=== PATIENT | male | born 1925 | race Asian ===

== ENCOUNTER 2016-11-19 23:33 | Inpatient (IN) | payer MEDICARE, OTHER ==
[~2016-11-19] VITALS: Ht 162.6 cm; Wt 61.2 kg
[2016-11-19] MEDS ORDERED: VITAMINS (23:46)
[2016-11-19 23:55] VITALS: BP 130/67
[2016-11-20] VITALS (8 sets, daily range): BP systolic 100–134; BP diastolic 57–74
[2016-11-20] MEDS ORDERED: Ketorolac 30mg Inj IV ONE (00:30)
[2016-11-20 00:46] LABS: BASOPHILS % (AUTO) 0.4 % (0.0-2.0); LYMPHOCYTES % (AUTO) 8.5 % (20.0-45.0); MEAN CORPUSCULAR HEMOGLOBIN 33.1 PG (27.0-31.0); MEAN CORPUSCULAR HGB CONC 34.9 G/DL (32.0-36.0); MEAN CORPUSCULAR VOLUME 95 FL (80-99); MEAN PLATELET VOLUME 5.5 FL (6.5-10.1); MONOCYTES % (AUTO) 12.3 % (1.0-10.0); NEUTROPHILS % (AUTO) 78.9 % (45.0-75.0); PLATELET COUNT 233 K/UL (150-450); RED BLOOD COUNT 3.76 M/UL (4.70-6.10); RED CELL DISTRIBUTION WIDTH 11.1 % (11.6-14.8); WHITE BLOOD COUNT 14.5 K/UL (4.8-10.8)
[2016-11-20 00:56] LABS: ALANINE AMINOTRANSFERASE 12 U/L (3-41); ANION GAP 15 (5-15); ASPARTATE AMINO TRANSFERASE 29 U/L (5-40); CARBON DIOXIDE 28 mEQ/L (20-30); CHLORIDE 96 mEQ/L (98-107); CREATININE 0.8 mg/dL (0.7-1.2); HEMOLYSIS 5; POTASSIUM 4.1 mEQ/L (3.4-4.9); SODIUM 139 mEQ/L (135-145); TOTAL PROTEIN 6.7 g/dL (6.6-8.7)
[2016-11-20 00:57] LABS: TROPONIN I < 0.30 ng/mL (<=0.30)
[2016-11-20 02:14] LABS: APPEARANCE,URINE CLOUDY; KETONES,URINE 1+ (NEGATIVE); LEUKOCYTE ESTERASE ,URINE 2+ (NEGATIVE); NITRITE,URINE POSITIVE (NEGATIVE); PH,URINE 5 (4.5-8.0); PROTEIN,URINE 3+ (NEGATIVE); UROBILINOGEN,URINE 1 MG/DL (0.0-1.0)
[2016-11-20 03:03] LABS: BACTERIA,URINE MANY /HPF; RBC,URINE TNTC /HPF (0 - 0); SQUAMOUS EPITHELIAL CELL,UR FEW /LPF (NONE/OCC); WBC,URINE 15-20 /HPF (0 - 0)
[2016-11-20] MEDS ORDERED: cefTRIAXone 1 GM in NS 55 ML IVPB ONE (03:15)
--- NOTE | 2016-11-20 03:59 | Emergency Room Report ---
History of Present Illness General Chief Complaint: Pain Source: Patient Present Illness HPI Patient is a 89-year-old male who presented after having increased difficulty with walking as well as increased difficulty with the urination. The patient noticed had increased pain over the past one day. The patient was noted to have increased difficulty with urination and stool. Patient reports having prior pain for approximately one month. This is somewhat worsened. Allergies: Coded Allergies: No Known Allergies (Verified Allergy, Unknown, 04/30/10) Patient History Past Medical History: see triage record Reviewed Nursing Documentation: PMH: Agreed, PSxH: Agreed Nursing Documentation-PMH Past Medical History: No Stated History Review of Systems All Other Systems: negative except mentioned in HPI Physical Exam Vital Signs Date Time Temp Pulse Resp B/P Pulse Ox O2 Delivery O2 Flow Rate FiO2 11/19/16 23:39 97.9 85 16 130/67 96 Room Air Sp02 EP Interpretation: reviewed, normal General Appearance: normal inspection, alert, GCS 15, moderate distress Head: atraumatic ENT: normal ENT inspection, hearing grossly normal, normal voice Neck: normal inspection, full range of motion, supple, no bony tend Respiratory: normal inspection, lungs clear, normal breath sounds, no respiratory distress, no retraction, no wheezing Cardiovascular #1: regular rate, rhythm, no edema Gastrointestinal: normal inspection, normal bowel sounds, non tender, soft, no guarding, no hernia Genitourinary: no CVA tenderness Musculoskeletal: normal inspection, back normal, normal range of motion Neurologic: normal inspection, alert, oriented x3, responsive, 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 Differential diagnosis included but was not limited to fracture, contusion, renal stone, vascular insufficiency, aortic aneurysm, cellulitis.Because of complexity of patient's case laboratory testing and imaging studies were ordered. The CT imaging of the abdomen pelvis read by radiology showed compression fracture of T12 which was indeterminate age. CT additionally showed the enlarged calcified prostate. Laboratory testing was notable for evidence of high white blood count as well as urinary tract infection. Patient was given IV antibiotics. Dr. Morales was contacted for inpatient management Laboratory Tests Test 11/20/16 00:35 11/20/16 01:30 White Blood Count 14.5 K/UL (4.8-10.8) H Red Blood Count 3.76 M/UL (4.70-6.10) L Hemoglobin 12.4 G/DL (14.2-18.0) L Hematocrit 35.6 % (42.0-52.0) L Mean Corpuscular Volume 95 FL (80-99) Mean Corpuscular Hemoglobin 33.1 PG (27.0-31.0) H Mean Corpuscular Hemoglobin Concent 34.9 G/DL (32.0-36.0) Red Cell Distribution Width 11.1 % (11.6-14.8) L Platelet Count 233 K/UL (150-450) Mean Platelet Volume 5.5 FL (6.5-10.1) L Neutrophils (%) (Auto) 78.9 % (45.0-75.0) H Lymphocytes (%) (Auto) 8.5 % (20.0-45.0) L Monocytes (%) (Auto) 12.3 % (1.0-10.0) H Eosinophils (%) (Auto) 0.0 % (0.0-3.0) Basophils (%) (Auto) 0.4 % (0.0-2.0) Sodium Level 139 mEQ/L (135-145) Potassium Level 4.1 mEQ/L (3.4-4.9) Chloride Level 96 mEQ/L (98-107) L Carbon Dioxide Level 28 mEQ/L (20-30) Anion Gap 15 (5-15) Blood Urea Nitrogen 20 mg/dL (7-23) Creatinine 0.8 mg/dL (0.7-1.2) Estimate Glomerular Filtration Rate mL/min (>60) Glucose Level 125 mg/dL (74-106) H Calcium Level 9.0 mg/dL (8.6-10.2) Total Bilirubin 0.7 mg/dL (0.0-1.2) Aspartate Amino Transferase (AST) 29 U/L (5-40) Alanine Aminotransferase (ALT) 12 U/L (3-41) Alkaline Phosphatase 60 U/L (40-129) Troponin I < 0.30 ng/mL (<=0.30) Total Protein 6.7 g/dL (6.6-8.7) Albumin 3.5 g/dL (3.5-5.2) Globulin 3.2 g/dL Albumin/Globulin Ratio 1.0 (1.0-2.7) Urine Color Brown Urine Appearance Cloudy Urine pH 5 (4.5-8.0) Urine Specific [place] 1.020 (1.005-1.035) Urine Protein 3+ (NEGATIVE) H Urine Glucose (UA) Negative (NEGATIVE) Urine Ketones 1+ (NEGATIVE) H Urine Occult Blood 5+ (NEGATIVE) H Urine Nitrite Positive (NEGATIVE) H Urine Bilirubin Negative (NEGATIVE) Urine Urobilinogen 1 MG/DL (0.0-1.0) H Urine Leukocyte Esterase 2+ (NEGATIVE) H Urine RBC Tntc /HPF (0 - 0) H Urine WBC 15-20 /HPF (0 - 0) H Urine Squamous Epithelial Cells Few /LPF (NONE/OCC) Urine Bacteria Many /HPF (NONE) H EKG Diagnostic Results Rate: normal Rhythm: NSR ST Segments: no acute changes Chest X-Ray Diagnostic Results EP Interpretation: Yes Findings: no effusion, no pneumothorax, other - post surgical changes. Number of Views: 1 Last Vital Signs Date Time Temp Pulse Resp B/P Pulse Ox O2 Delivery O2 Flow Rate FiO2 11/20/16 02:00 81 17 131/60 97 Room Air 11/20/16 00:51 97.9 Status: unchanged Disposition: ADMITTED INPATIENT Condition: Serious Referrals: NON PHYSICIAN (PCP) Alex Velasco Nov 20, 2016 03:59
[2016-11-20] MEDS: Tamsulosin 0.4mg cap ORAL SCH ×2 (08:34→18:15)
[2016-11-20] MEDS: Heparin 5000 units/ml inj SUBQ SCH ×3 (08:35→21:09)
--- NOTE | 2016-11-20 08:50 | Diagnostic Imaging Report ---
Indications: Fall, cephalgia Technique: Continuous helical CT imaging of the brain was performed with nonionic exposure control on a Siemens sensation [address] scanner. Axial and coronal images were reconstructed at 5 mm slice thickness and interval. CTDI volume(s): 70 mGy Total DLP: 1460 mGy-cm Findings: Comparison: None Confluent low attenuation is present in the bilateral periventricular white matter. Ventricles, cisterns, and sulci are diffusely prominent. No evidence of mass or hemorrhage, mass effect, midline shift, hydrocephalus, or increased intracranial pressure. Bone window images are unremarkable. Mild mucoperiosteal thickening scattered throughout the paranasal sinuses. Bilateral mastoid air cells are clear. IMPRESSION: No evidence of acute injury or other acute intracranial pathology Chronic microvascular ischemic changes bilateral cervical periventricular white matter. Atrophy with ventriculomegaly. An element of normal pressure hydrocephalus must be considered Mild sinusitis. This correlates with preliminary report generated overnight by [facility]. The CT scanner at [facility] is accredited by the [employer] and the scans are performed using protocols designed to limit radiation exposure to as low as reasonably achievable to attain images of sufficient resolution adequate for diagnostic evaluation.
--- NOTE | 2016-11-20 08:52 | Diagnostic Imaging Report ---
Indications: Chest pain Technique: Portable AP chest Findings: Comparison: 04/30/2010 Focal alveolar opacity has developed in the left parahilar region. Linear densities persist in the lateral aspect of the right upper lung. Heart size, pulmonary vasculature remain within normal limits. No pleural abnormality demonstrated. Aortic arch calcification, sternal wires, cardiomediastinal surgical clips all again noted. IMPRESSION: Development of left parahilar opacity compatible with but not specific for pneumonia Stable chronic changes as described
--- NOTE | 2016-11-20 08:56 | Diagnostic Imaging Report ---
Indications: Right knee pain Technique: 3 views right knee. Findings: Comparison: None No fracture, dislocation, joint space widening or effusion, lytic destruction, periosteal reaction , surrounding soft tissue swelling/foreign body/gas, or other acute changes are identified. Curvilinear calcifications are present in both knee joint compartments. Arterial mural calcifications are present in the distal thigh and popliteal fossa. No other chronic changes are demonstrated. IMPRESSION: No evidence of acute abnormality Chondrocalcinosis. Diagnostic possibilities include gout, pseudogout, hyperparathyroidism, and other less common deposition diseases. Arteriosclerosis.
--- NOTE | 2016-11-20 08:58 | Diagnostic Imaging Report ---
Indications: Left knee pain Technique: 3 views left knee. Findings: Comparison: None No fracture, dislocation, joint space widening or effusion, lytic destruction, periosteal reaction , surrounding soft tissue swelling/foreign body/gas, or other acute changes are identified. Curvilinear calcifications are present in both knee joint compartments. Arterial mural calcifications are present in the popliteal fossa. No other chronic changes are demonstrated. IMPRESSION: No evidence of acute abnormality Chondrocalcinosis. Diagnostic possibilities include gout, pseudogout, hyperparathyroidism, and other less common deposition diseases. Arteriosclerosis.
--- NOTE | 2016-11-20 08:58 | Diagnostic Imaging Report ---
Indications: Abdominal pain Technique: Continuous helical CT imaging of the abdomen and pelvis was performed with automatic exposure control following administration of nonionic IV contrast only, on a Siemens sensation [address] scanner. Axial, coronal, sagittal images were reconstructed at 5 mm slice thickness. No oral contrast was administered per requesting physician's order, despite no contraindications listed in either submitted clinical data or tech note.. CTDI volume(s): 13 mGy Total DLP: 594 mGy-cm Findings: Comparison: None Lack of oral contrast limits evaluation of gastrointestinal tract, nondilated throughout. Stomach collapsed. Multiple fluid-filled, nondilated small bowel loops, some with air-fluid levels. Appendix not identified. Increased feces throughout colon to rectum.. No obvious mural thickening, adjacent stranding, extraluminal gas or fluid collections identified. Gallbladder contracted, limiting evaluation. No obvious acute abnormality. Prominent arterial mural calcifications and tortuosity. Apparent moderate stenosis of superior mesenteric artery origin to 50% diameter. High-grade stenoses at the origins of the celiac axis, bilateral renal, inferior mesenteric artery is not excludable. Urinary bladder distended with apparent mild mural thickening. Prostate gland is enlarged, heterogeneous, calcified. Remainder of visualized abdominopelvic anatomy unremarkable. Multiple foci of increased interstitial markings in the periphery of both lung bases. Heart enlarged. Sternal wires are present. Prominent calcification in region of aortic valve. Calcification in left hilum. Multilevel disc space narrowing with marginal osteophyte formation, vacuum phenomenon and lumbar, lower thoracic spine. Mild compression fractures. The T12 vertebral body with 10-20% height loss, no significant retropulsion. Narrowing of bilateral hip joints. . IMPRESSION: Fluid-filled nondilated small bowel. Mild enteritis not excludable. This finding not described in [facility] preliminary report, minor discrepancy. Nonvisualization of appendix. No secondary evidence of acute appendicitis. No other evidence of acute abdominopelvic disease, with limitation as described. Subtle but potentially significant abnormalities the gastrointestinal tract may be missed. Repeat CT scan with full oral and IV contrast preparation recommended for more complete evaluation. Limit evaluation of gallbladder due to contraction. Correlate clinically. Severe arteriosclerosis. Multiple high-grade stenoses as described not excludable. Consider CT angiography for further evaluation as clinically indicated. 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 Consider MRI for further evaluation as clinically indicated. This otherwise correlates with [facility] preliminary report.
[2016-11-20] MEDS ORDERED: Acetaminophen 500mg (ES) tab ORAL PRN (14:45)
[2016-11-20] MEDS: Piperacillin/Tazobactam 3.375 GM in D5W 110 ML IVPB SCH (17:07)
[2016-11-20] MEDS: Docusate 100mg cap ORAL SCH (18:15)
--- NOTE | 2016-11-20 20:18 | History and Physical Report ---
DATE OF ADMISSION: 11/20/2016 CHIEF COMPLAINT AND REASON FOR HOSPITALIZATION: The patient admitted with recurrent falls, difficulty walking, and possible urinary tract infection. HISTORY OF PRESENT ILLNESS: The patient apparently had three falls and present with difficulty walking and limping on the right leg. He has bilateral hip pain. The patient has found to have a probable UTI and a thoracic compression fracture on initial study. There is a history of coronary bypass surgery, I think about ten years ago. No recurrent chest pain or shortness of breath. MEDICATIONS: He does not know his medications. He thinks he takes a blood pressure pill. ALLERGIES: None known. HABITS: He smoked many years ago and quit. No alcohol or drugs. 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 He lives alone. SYSTEM REVIEW: HEENT: Vision is mildly impaired . His hearing impairment. ENDOCRINE: No known diabetes or thyroid disease. PULMONARY: No asthma, TB, or chronic cough. CARDIAC: History of bypass surgery. No definite RI. No CHF or arrhythmias. GI: No GI bleeding, ulcers, or abdominal pain. : He has some slow stream urine and nocturia about three times. NEUROLOGIC: No evidence of CVA or seizures. PHYSICAL EXAMINATION: GENERAL: The patient is an alert elderly man seen with [place] nurse at bedside. VITAL SIGNS: His temperature 97.6 degrees, pulse 81, respirations 18, and blood pressure 100/67. HEENT: Sclerae are nonicteric. Ocular motions intact in all directions. He has had appearing oral mucosa slightly dry. NECK: No adenopathy. LUNGS: Clear. HEART: Regular rhythm. No murmur. ABDOMEN: Soft. No organomegaly or masses. : Declined by the patient. RECTAL: Declined by the patient. EXTREMITIES: No edema, cyanosis, or clubbing. NEUROLOGIC: He is alert and responsive. Follows commands. Appears to be oriented. Ocular motions intact in all directions. Mild symmetric. Tongue is midline. He moves all extremities. He has a limp the right foot . PERTINENT LABORATORIES: Imaging showing lumbar and the thoracic compression fractures and fluid-filled nondilated small bowel and severe atherosclerosis and mural thickening of the urinary bladder wall and enlarged calcified possibly pulmonary bibasilar interstitial disease, cardiomegaly with aortic valve calcification vertebral body compression fracture acuity and indeterminate. IMPRESSION: 1. Probable urinary tract infection. 2. History of coronary disease. 3. History of recurrent falls. 4. Osteoarthritis of the hips. 5. Possible lumbar disk. 6. Gait disorder. 7. Incomplete data base. 8. Social issues apparently he lives alone concern of recurrent falls. PLAN: We will get mental health social worker involved. Physical therapy. Start antibiotics for UTI and start medications for BPH and pain management. Oneal Morales M.D. DR: Mik JOB#: [id number] CC:
[2016-11-21] VITALS: BP 109/66
[2016-11-21] MEDS: Piperacillin/Tazobactam 3.375 GM in D5W 110 ML IVPB SCH ×2 (00:20→08:02)
[2016-11-21 04:00] VITALS: BP 110/55
[2016-11-21] MEDS: Tamsulosin 0.4mg cap ORAL SCH (08:03)
[2016-11-21] MEDS: Docusate 100mg cap ORAL SCH (08:03)
[2016-11-21] MEDS: Heparin 5000 units/ml inj SUBQ SCH ×2 (08:03→09:36)
[2016-11-21 08:15] VITALS: BP 94/45
[2016-11-21 12:01] VITALS: BP 120/64
[2016-11-21] MEDS ORDERED: TAMSULOSIN HCL0.4 MG ORAL (14:46)
[2016-11-21] MEDS ORDERED: PROSCAR5 MG ORAL (14:47)
[2016-11-21] MEDS ORDERED: TYLENOL EXTRA500 MG ORAL (14:48)
[2016-11-21] MEDS ORDERED: LIDODERM700 M1 TOPIC (14:48)
--- NOTE | 2016-11-22 03:19 | Discharge Summary ---
DATE OF ADMISSION: 11/20/2016 DATE OF DISCHARGE: 11/21/2016 PERTINENT HISTORY: The patient is admitted with recurrent falls, difficulty walking, and pain in the right hip and sciatica area. He also is found to have a possibly UTI with pyuria and a thoracic compression fracture on imaging. There is a history of coronary bypass surgery about 10 years ago. PERTINENT PHYSICAL FINDINGS: See my dictation. HEENT: Oral mucosa is slightly dry. NECK: No adenopathy. LUNGS: Clear. HEART: Regular rhythm. ABDOMEN: Soft without organomegaly. EXTREMITIES: No edema. NEUROLOGIC: He is alert and responsive. Follows commands. No focal weakness. He had a limp with some mild right leg drag and appears to have some pain in the right sciatic distribution. COURSE IN THE HOSPITAL: The patient was treated with empiric antibiotics for urinary tract infection, but culture was negative. Physical therapy saw the patient and showed him how to use the walker properly. He was given mild analgesics with Tylenol and Lidoderm patch. The patient wished to go home. Social service saw the patient and I asked him to try to get home health and home physical therapy. It is not clear, if the patient would cooperate, as he did not want to be bothered. He was started on medications for BPH and he was discharged home in stable condition. Able to walk short distances with walker without falling. FINAL DIAGNOSES: 1. Recurrent falls. 2. Osteoarthritis of the hips. 3. 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 4. Gait disorder. 5. Pyuria, but negative urine culture. 6. Benign prostatic hypertrophy. 7. History of coronary disease and prior coronary artery bypass. DISCHARGE DISPOSITION: He is discharged home on a regular diet. Proscar 5 mg daily, Flomax 0.4 mg b.i.d., Tylenol 1000 mg t.i.d., and Lidoderm one patch daily. He is encouraged to follow up with his primary care physician. He is from this hospital. Oneal Morales M.D. DR: TRINH JOB#: [id number] CC:
== END 2016-11-21 18:04 | disposition home health service (06) | DRG 552 ==
LOC: EMR 11-20 00:23 → 4E 11-20 03:35 → EDBEDREQ 11-20 04:34 → 4E 11-20 10:59
DX: S22.089A Unspecified fracture of T11-T12 vertebra, initial encounter for closed fracture (principal); N39.0 Urinary tract infection, site not specified; Z95.1 Presence of aortocoronary bypass graft; I25.10 Atherosclerotic heart disease of native coronary artery without angina pectoris; M16.0 Bilateral primary osteoarthritis of hip; Z91.81 History of falling; R26.9 Unspecified abnormalities of gait and mobility; N40.0 Benign prostatic hyperplasia without lower urinary tract symptoms; Z60.2 Problems related to living alone; M11.262 Other chondrocalcinosis, left knee; M11.261 Other chondrocalcinosis, right knee; I51.7 Cardiomegaly; M51.16 Intervertebral disc disorders with radiculopathy, lumbar region; W19.XXXA Unspecified fall, initial encounter; Y92.9 Unspecified place or not applicable; Z87.891 Personal history of nicotine dependence
CPT/HCPCS: 36415; 70450; 71010; 74177; 80053; 81001; 84484; 85025; 87086

== ENCOUNTER 2016-12-28 21:24 | Inpatient (IN) | payer MEDICARE, OTHER ==
[~2016-12-28] VITALS: Ht 167.6 cm; Wt 51.7 kg
[~2016-12-28 21:24] MED LIST: LIDODERM700 M1 TOPIC; PROSCAR5 MG ORAL; TAMSULOSIN HCL0.4 MG ORAL; TYLENOL EXTRA500 MG ORAL; VITAMINS
--- NOTE | 2016-12-28 21:39 | Emergency Room Report ---
History of Present Illness General Chief Complaint: Generalized Weakness Source: Patient, EMS Present Illness HPI Patient is a 89-year-old male brought in by EMS after increased generalized weakness. Patient stated that he had been having increased weakness. Patient prior history of COPD. Patient reports having intermittent chest pain associated with increased productive cough. Patient stated been having yellow sputum. Patient denied any fever. He denied any abdominal pain. Allergies: Coded Allergies: No Known Allergies (Verified , 04/30/10) Patient History Past Medical History: see triage record Reviewed Nursing Documentation: PMH: Agreed, PSxH: Agreed Nursing Documentation-PMH Past Medical History: No History, Except For Hx Hypertension: Yes Hx Cancer: No Hx Gastrointestinal Problems: No Hx Neurological Problems: No Review of Systems All Other Systems: negative except mentioned in HPI Physical Exam Vital Signs Date Time Temp Pulse Resp B/P Pulse Ox O2 Delivery O2 Flow Rate FiO2 12/28/16 21:24 98.8 74 19 171/80 98 Room Air Sp02 EP Interpretation: reviewed, normal General Appearance: normal inspection, well appearing, no apparent distress, alert, GCS 15, non-toxic Head: atraumatic ENT: normal ENT inspection, hearing grossly normal, normal voice Neck: normal inspection, full range of motion, supple, no bony tend Respiratory: normal inspection, lungs clear, normal breath sounds, no respiratory distress, no retraction, no wheezing Cardiovascular #1: regular rate, rhythm, no edema Gastrointestinal: normal inspection, normal bowel sounds, non tender, soft, no guarding, no hernia Genitourinary: no CVA tenderness Musculoskeletal: normal inspection, back normal, normal range of motion Neurologic: normal inspection, alert, oriented x3, 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 Differential diagnosis included was not limited to anemia, urinary tract infection, electrolyte abnormality, hypothyroidism, myocardial infarction , myasthenia gravis, dehydration, among others. Because of complexity of patient's case laboratory testing and imaging studies were ordered.Laboratory testing is notable for only white blood count with a slightly left shift. Chest x-ray one view interpreted by me showed right lower lobe infiltrate. The patient was started on IV antibiotics. Dr. Yuniel Meyers was contacted for Dr. Oneal Morales for inpatient management Labs Test 12/28/16 22:00 12/28/16 22:34 White Blood Count 11.0 K/UL (4.8-10.8) Red Blood Count 3.78 M/UL (4.70-6.10) Hemoglobin 12.7 G/DL (14.2-18.0) Hematocrit 37.8 % (42.0-52.0) Mean Corpuscular Volume 100 FL (80-99) Mean Corpuscular Hemoglobin 33.5 PG (27.0-31.0) Mean Corpuscular Hemoglobin Concent 33.5 G/DL (32.0-36.0) Red Cell Distribution Width 12.4 % (11.6-14.8) Platelet Count 197 K/UL (150-450) Mean Platelet Volume 5.0 FL (6.5-10.1) Neutrophils (%) (Auto) 81.3 % (45.0-75.0) Lymphocytes (%) (Auto) 10.7 % (20.0-45.0) Monocytes (%) (Auto) 7.2 % (1.0-10.0) Eosinophils (%) (Auto) 0.3 % (0.0-3.0) Basophils (%) (Auto) 0.5 % (0.0-2.0) Sodium Level 142 mEQ/L (135-145) Potassium Level 3.5 mEQ/L (3.4-4.9) Chloride Level 100 mEQ/L (98-107) Carbon Dioxide Level 29 mEQ/L (20-30) Anion Gap 13 (5-15) Blood Urea Nitrogen 24 mg/dL (7-23) Creatinine 0.8 mg/dL (0.7-1.2) Estimat Glomerular Filtration Rate mL/min (>60) Glucose Level 93 mg/dL (74-106) Lactic Acid Level 1.30 mmol/L (0.66-2.22) Calcium Level 8.9 mg/dL (8.6-10.2) Total Bilirubin 0.7 mg/dL (0.0-1.2) Aspartate Amino Transf (AST/SGOT) 24 U/L (5-40) Alanine Aminotransferase (ALT/SGPT) 10 U/L (3-41) Alkaline Phosphatase 55 U/L (40-129) Total Creatine Kinase 222 U/L (38-174) Creatine Kinase MB 7.1 ng/mL (< 6.7) Creatine Kinase MB Relative Index 3.1 Troponin I < 0.30 ng/mL (<=0.30) Total Protein 6.7 g/dL (6.6-8.7) Albumin 3.7 g/dL (3.5-5.2) Globulin 3.0 g/dL Albumin/Globulin Ratio 1.2 (1.0-2.7) Urine Color Pale yellow Urine Appearance Clear Urine pH 6 (4.5-8.0) Urine Specific [place] 1.020 (1.005-1.035) Urine Protein 1+ (NEGATIVE) Urine Glucose (UA) Negative (NEGATIVE) Urine Ketones Negative (NEGATIVE) Urine Occult Blood 1+ (NEGATIVE) Urine Nitrite Negative (NEGATIVE) Urine Bilirubin Negative (NEGATIVE) Urine Urobilinogen Normal MG/DL (0.0-1.0) Urine Leukocyte Esterase 1+ (NEGATIVE) Urine RBC 2-4 /HPF (0 - 0) Urine WBC 2-4 /HPF (0 - 0) Urine Squamous Epithelial Cells Occasional /LPF Urine Bacteria Few /HPF (NONE) Urine Mucus Few /LPF (NONE/OCC) Chest X-Ray Diagnostic Results EP Interpretation: Yes Findings: no effusion, no pneumothorax, other - right lung infiltrate Number of Views: 1 Last Vital Signs Date Time Temp Pulse Resp B/P Pulse Ox O2 Delivery O2 Flow Rate FiO2 12/28/16 21:24 98.8 74 19 171/80 98 Room Air Status: unchanged Disposition: ADMITTED INPATIENT Condition: Serious Alex Velasco Dec 28, 2016 21:39
[2016-12-28 22:17] LABS: BASOPHILS % (AUTO) 0.5 % (0.0-2.0); EOSINOPHILS % (AUTO) 0.3 % (0.0-3.0); LYMPHOCYTES % (AUTO) 10.7 % (20.0-45.0); MEAN CORPUSCULAR HEMOGLOBIN 33.5 PG (27.0-31.0); MEAN CORPUSCULAR HGB CONC 33.5 G/DL (32.0-36.0); MEAN CORPUSCULAR VOLUME 100 FL (80-99); MONOCYTES % (AUTO) 7.2 % (1.0-10.0); NEUTROPHILS % (AUTO) 81.3 % (45.0-75.0); PLATELET COUNT 197 K/UL (150-450); RED BLOOD COUNT 3.78 M/UL (4.70-6.10); RED CELL DISTRIBUTION WIDTH 12.4 % (11.6-14.8)
[2016-12-28 22:48] VITALS: BP 148/74
[2016-12-28 22:59] LABS: ALANINE AMINOTRANSFERASE 10 U/L (3-41); ALBUMIN/GLOBULIN RATIO 1.2 (1.0-2.7); ANION GAP 13 (5-15); ASPARTATE AMINO TRANSFERASE 24 U/L (5-40); CALCIUM 8.9 mg/dL (8.6-10.2); CARBON DIOXIDE 29 mEQ/L (20-30); CHLORIDE 100 mEQ/L (98-107); CREATININE 0.8 mg/dL (0.7-1.2); HEMOLYSIS 7; POTASSIUM 3.5 mEQ/L (3.4-4.9); SODIUM 142 mEQ/L (135-145); TOTAL PROTEIN 6.7 g/dL (6.6-8.7)
[2016-12-28] MEDS ORDERED: UNOBMED (23:01)
[2016-12-28 23:07] LABS: TROPONIN I < 0.30 ng/mL (<=0.30)
[2016-12-28 23:09] LABS: CKMB 7.1 ng/mL (< 6.7)
[2016-12-28 23:25] LABS: APPEARANCE,URINE CLEAR; KETONES,URINE NEGATIVE (NEGATIVE); LEUKOCYTE ESTERASE ,URINE 1+ (NEGATIVE); NITRITE,URINE NEGATIVE (NEGATIVE); PH,URINE 6 (4.5-8.0); PROTEIN,URINE 1+ (NEGATIVE); UROBILINOGEN,URINE NORMAL MG/DL (0.0-1.0)
[2016-12-28 23:54] LABS: BACTERIA,URINE FEW /HPF; MUCUS,URINE FEW /LPF (NONE/OCC); SQUAMOUS EPITHELIAL CELL,UR OCCASIONAL /LPF (NONE/OCC)
[2016-12-29] VITALS (7 sets, daily range): BP systolic 108–167; BP diastolic 59–88
[2016-12-29] MEDS ORDERED: Azithromycin 500 MG in D5W 275 ML IVPB ONE (01:00)
[2016-12-29] MEDS ORDERED: cefTRIAXone 1 GM in NS 55 ML IVPB ONE (01:00)
[2016-12-29] MEDS ORDERED: Azithromycin 500 MG in NS 275 ML IV ONE (01:15)
[2016-12-29] MEDS ORDERED: Azithromycin Inj IV ONE (01:30)
[2016-12-29] MEDS ORDERED: D5 1/2NS 1,000 ML IV SCH (02:09)
[2016-12-29] MEDS: Tamsulosin 0.4mg cap ORAL SCH ×3 (08:38→20:50)
[2016-12-29] MEDS: Heparin 5000 units/ml inj SUBQ SCH ×3 (08:39→20:50)
--- NOTE | 2016-12-29 11:12 | Diagnostic Imaging Report ---
Indication: SOB Technique: One view of the chest Comparison: 11/20/2016 Findings: Heart is borderline enlarged. Lungs and pleural spaces are clear. There is central bronchial wall thickening. There is evidence of prior CABG. Previously demonstrated left perihilar opacity is no longer evident Impression: Central bronchial wall thickening, likely COPD or senescent changes No acute process
[2016-12-29] MEDS ORDERED: Azithromycin 500 MG in NS 275 ML IV SCH (18:00)
[2016-12-29] MEDS: cefTRIAXone 1 GM in NS 55 ML IVPB SCH (20:50)
--- NOTE | 2016-12-29 21:17 | History and Physical Report ---
DATE OF ADMISSION: 12/28/2016 CHIEF COMPLAINT AND REASON FOR HOSPITALIZATION: The patient admitted with pneumonia and weakness. HISTORY OF PRESENT ILLNESS: The patient presented to the emergency room with cough and weakness. Per the emergency room physician, he has no infiltrate on chest x-ray. He was hospitalized here on 11/20/2016 with recurrent falls, osteoarthritis, and pyuria with negative urine culture. He also has a history of coronary disease, prior coronary artery bypass surgery, and benign prostatic hypertrophy. He has a history of COPD. PAST SURGICAL HISTORY: Coronary artery bypass surgery and eye surgery. MEDICATIONS: Finasteride and Flomax. ALLERGIES: None known. HABITS: He smoked many years ago and quit. No alcohol or drugs socially. He lives alone. 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 SYSTEM REVIEW: HEENT: He has poor vision and mild hearing impairment. ENDOCRINE: No diabetes or thyroid disease. PULMONARY: History of COPD and worsening cough recently. No definite TB. CARDIAC: History of coronary bypass surgery. No FL, but he is aware of no CHF or arrhythmia. GI: No ulcers or GI bleeding. No chronic abdominal pain. : He has some decreased stream of urine. No dysuria. NEUROLOGIC: No CVA or seizures. MUSCULOSKELETAL: History of T12 compression fracture and degenerative joint disease. He has had problem walking possibly from lumbar disk and osteoarthritis of the hips. PHYSICAL EXAMINATION: GENERAL: The patient is alert, elderly man, chronically ill-appearing, but not in severe distress. VITAL SIGNS: Temperature 97.5 degrees, pulse 67, respirations 15, and blood pressure 108/60. HEENT: Sclerae are nonicteric. Ocular motions intact in all directions. Hearing is mildly diminished. Throat is clear. NECK: No adenopathy or thyroid enlargement. LUNGS: I hear no rales or rhonchi. There is a dry cough. HEART: Regular rhythm. No murmur. ABDOMEN: Soft. No organomegaly or masses. GENITOURINARY: Penis and testes normal. RECTAL: Deferred. EXTREMITIES: No edema, cyanosis, or clubbing. No swollen joints. NEUROLOGIC: He is alert and responsive. Ocular motions intact in all directions. Smile symmetric. Tongue is midline. He moves all extremities. PERTINENT LABORATORIES: White count of 11,000 and hemoglobin 12.7. Normal electrolytes. CK is 222. Troponin less than 0.30. Urine shows 2 to 4 white cells, 2 to 4 red cells per high-power field, and 1+ protein. IMPRESSION: 1. Pneumonia. 2. Chronic obstructive pulmonary disease. 3. Coronary artery disease. 4. Osteoarthritis. 5. 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 6. Gait disorder. 7. Generalized weakness. PLAN: the patient will be given antibiotics for community-acquired pneumonia. We will watch him closely in view of his comorbidities. He will get reassessed with social service and physical therapy. Oneal Morales M.D. DR: Mik JOB#: [id number] CC:
[2016-12-29] MEDS: DuoNeb 0.5-3(2.5)mg/3ml neb HHN SCH (21:56)
--- NOTE | 2016-12-29 22:28 | Consultation ---
DATE OF CONSULTATION: 12/29/2016 PULMONARY CONSULTATION CONSULTING PHYSICIAN: Yuniel Meyers M.D. ATTENDING PHYSICIAN: Oneal Morales M.D. HISTORY OF PRESENT ILLNESS: The patient is an 89-year-old man, brought into the emergency department by paramedics because of weakness. He has a history of chronic obstructive pulmonary disease. He states that he is coughing and producing some yellow sputum. He has no fever and no shortness of breath. He was evaluated and thought to have possible pneumonia and admission was arranged. I interviewed the patient, who is a poor historian. I have reviewed the x-rays and laboratory studies and examined him. PAST MEDICAL HISTORY: Chronic obstructive pulmonary disease, coronary artery disease, bypass surgery, hypertension, and prostate problems. MEDICATIONS: Not clear what medications he takes at home, possibly a blood pressure pill. ALLERGIES: None. REVIEW OF SYSTEMS: Cannot be obtained. PHYSICAL EXAMINATION: GENERAL: The patient is alert, but seems confused. VITAL SIGNS: Stable. There is no fever. HEENT: The head is normocephalic. NECK: There is no jugular venous distention. CHEST: Clear. CARDIAC: Rhythm is regular. ABDOMEN: Soft and nontender. EXTREMITIES: No edema. LABORATORY STUDIES: Showed a white blood count is slightly elevated at 11,000 with mild left shift, hemoglobin is 12.7, and platelets are normal. Chemistry shows mild increase in BUN and CPK. Urinalysis is essentially negative. Chest x-ray is reviewed and shows an old sternotomy. There are no acute infiltrates. IMPRESSION: 1. Chronic obstructive pulmonary disease exacerbation. 2. Mild anemia. 3. Hypertension. 4. Status post coronary artery bypass surgery. 5. Probable benign prostatic hypertrophy. PLAN: The patient will continue on antibiotics. We will order breathing treatments. There is no indication of pneumonia. Early discharge is anticipated. Yuniel Meyers M.D. DR: PRETTY JOB#: [id number] CC:
[2016-12-30] MEDS: DuoNeb 0.5-3(2.5)mg/3ml neb HHN SCH ×4 (01:00→19:00)
[2016-12-30 04:00] VITALS: BP 130/75
[2016-12-30 08:00] VITALS: BP 114/67
[2016-12-30] MEDS: Tamsulosin 0.4mg cap ORAL SCH ×2 (08:56→21:10)
--- NOTE | 2016-12-30 08:58 | General Progress Note ---
Assessment/Plan Problem List: (1) CAD (coronary artery disease) of artery bypass graft ICD Codes: I25.810 - Atherosclerosis of coronary artery bypass graft(s) without angina pectoris SNOMED: 82748999, 70767355, 766887949, 405571972, 331683727 (2) Osteoarthritis ICD Codes: M19.90 - Unspecified osteoarthritis, unspecified site SNOMED: 568246037 (3) Lumbar disc disease ICD Codes: M51.9 - Unspecified thoracic, thoracolumbar and lumbosacral intervertebral disc disorder SNOMED: 18610724, 680090366 (4) Gait abnormality ICD Codes: R26.9 - Unspecified abnormalities of gait and mobility SNOMED: 05151063 (5) COPD exacerbation ICD Codes: J44.1 - Chronic obstructive pulmonary disease with (acute) exacerbation SNOMED: 782926041, 728000685 (6) Episode of generalized weakness ICD Codes: R53.1 - Weakness SNOMED: 02180566 (7) Bronchitis ICD Codes: J40 - Bronchitis, not specified as acute or chronic SNOMED: 38742065 Assessment/Plan continue antibiotics, PT mobilization and safety eval, social service eval Subjective Constitutional: Reports: weakness HEENT: Reports: no symptoms Cardiovascular: Reports: no symptoms Respiratory: Reports: cough, shortness of breath Gastrointestinal/Abdominal: Reports: no symptoms Genitourinary: Reports: no symptoms Neurologic/Psychiatric: Reports: pre-existing deficit, weakness Endocrine: Reports: no symptoms Hematologic/Lymphatic: Reports: no symptoms Allergies: Coded Allergies: No Known Allergies (Verified , 04/30/10) Subjective difficulty walking Objective Last 24 Hour Vital Signs Date Time Temp Pulse Resp B/P Pulse Ox O2 Delivery O2 Flow Rate FiO2 12/30/16 07:29 Room Air 12/30/16 07:27 Room Air 12/30/16 04:00 98.2 75 19 130/75 97 Room Air 12/30/16 01:55 72 20 Room Air 21 12/30/16 01:30 20 Room Air 12/30/16 01:30 Room Air 12/29/16 20:00 96.7 74 20 167/88 98 Room Air 12/29/16 16:00 97.7 83 20 141/77 96 Room Air 12/29/16 12:00 97.9 20 124/66 97 Room Air Intake and Output 12/29/16 12/30/16 19:00 07:00 Intake Total 420 ml 480 ml Balance 420 ml 480 ml Intake Oral 120 ml 480 ml IV Total 300 ml # Voids 2 4 # Bowel Movements 1 Height (Feet): 5 Height (Inches): 6.00 Weight (Pounds): 114 General Appearance: no apparent distress, alert EENT: normal ENT inspection Neck: normal alignment Cardiovascular: normal rate, regular rhythm Respiratory/Chest: rhonchi - bilaterally Abdomen: non tender, soft Extremities: other - no edema Neurologic: other - unsteady gait FINN RODRIGUEZ Dec 30, 2016 08:57
[2016-12-30] MEDS: Heparin 5000 units/ml inj SUBQ SCH ×2 (09:00→21:00)
[2016-12-30] MEDS: Azithromycin 250mg tab ORAL SCH (09:11)
[2016-12-30 12:00] VITALS: BP 114/67
[2016-12-30 16:00] VITALS: BP 127/69
--- NOTE | 2016-12-30 18:59 | Pulmonology Progress Note ---
Assessment/Plan Assessment/Plan 1. Chronic obstructive pulmonary disease exacerbation. 2. Mild anemia. 3. Hypertension. 4. Status post coronary artery bypass surgery. 5. Probable benign prostatic hypertrophy. NO steroids nebs as rx abx transition to po oob check RA sat dc planning Subjective Constitutional: Reports: no symptoms HEENT: Repors: no symptoms Respiratory: Reports: no symptoms Gastrointestinal/Abdominal: Reports: no symptoms Allergies: Coded Allergies: No Known Allergies (Verified , 04/30/10) Subjective confused no distress requesting IV removed no cp nv or bleeding positive uop Objective Last 24 Hour Vital Signs Date Time Temp Pulse Resp B/P Pulse Ox O2 Delivery O2 Flow Rate FiO2 12/30/16 16:00 98.1 75 18 127/69 99 Room Air 12/30/16 13:39 77 20 100 Room Air 12/30/16 13:30 83 18 95 Room Air 12/30/16 12:00 97.5 73 18 114/67 96 Room Air 12/30/16 08:00 97.9 84 18 114/67 98 Room Air 12/30/16 07:29 Room Air 12/30/16 07:27 Room Air 12/30/16 04:00 98.2 75 19 130/75 97 Room Air 12/30/16 01:55 72 20 Room Air 21 12/30/16 01:30 20 Room Air 12/30/16 01:30 Room Air 12/29/16 20:00 96.7 74 20 167/88 98 Room Air Intake and Output 12/29/16 12/30/16 19:00 07:00 Intake Total 420 ml 480 ml Balance 420 ml 480 ml Intake Oral 120 ml 480 ml IV Total 300 ml # Voids 2 4 # Bowel Movements 1 General Appearance: cachetic HEENT: atraumatic, anicteric Respiratory/Chest: lungs clear, normal breath sounds Cardiovascular: normal peripheral pulses, regular rhythm Abdomen: no organomegaly, non distended Extremities: no clubbing Skin: no lesions Neurologic/Psychiatric: alert, responsive Microbiology Date/Time Source Procedure Growth Status 12/28/16 22:00 Blood Blood Culture - Preliminary NO GROWTH AFTER 24 HOURS Resulted 12/28/16 19:45 Blood Blood Culture - Preliminary NO GROWTH AFTER 24 HOURS Resulted Current Medications Medications (Trade) Dose Ordered Sig/Yulisa Route PRN Reason Start Time Stop Time Status Last Admin Dose Admin Acetaminophen (Tylenol) 650 mg Q4H PRN ORAL Mild Pain/Temp > 100.5 12/29/16 08:00 01/28/17 07:59 Albuterol/ Ipratropium (DuoNeb 0.5-3(2.5)mg/3ml) 3 ml Q6HRT N 12/29/16 14:30 01/03/17 14:29 12/30/16 13:31 Azithromycin (Zithromax) 250 mg DAILY ORAL 12/30/16 09:00 01/06/17 08:59 12/30/16 09:11 Ceftriaxone Sodium/Sodium Chloride (Rocephin/Sodium Chloride) 55 ml @ 110 mls/hr DAILY@2100 IVPB 12/29/16 21:00 01/05/17 20:59 12/29/16 20:50 Finasteride (Proscar) 5 mg DAILY ORAL 12/29/16 09:00 01/28/17 08:59 12/30/16 08:56 Heparin Sodium (Porcine) (Heparin 5000 units/ml) 5,000 units EVERY 12 HOURS SUBQ 12/29/16 09:00 01/28/17 08:59 12/30/16 09:00 Lidocaine (Lidoderm 5% PATCH) 1 patch PRN PRN TDERMAL BACK PAIN 12/29/16 08:00 01/28/17 07:59 12/30/16 09:11 Tamsulosin HCl (Flomax) 0.4 mg Q12HR ORAL 12/29/16 09:00 01/28/17 08:59 12/30/16 08:56 Current Medications Medications (Trade) Dose Ordered Sig/Yulisa Route PRN Reason Start Time Stop Time Status Last Admin Dose Admin Acetaminophen (Tylenol) 650 mg Q4H PRN ORAL Mild Pain/Temp > 100.5 12/29/16 08:00 01/28/17 07:59 Albuterol/ Ipratropium (DuoNeb 0.5-3(2.5)mg/3ml) 3 ml Q6HRT N 12/29/16 14:30 01/03/17 14:29 12/30/16 13:31 Azithromycin (Zithromax) 250 mg DAILY ORAL 12/30/16 09:00 01/06/17 08:59 12/30/16 09:11 Ceftriaxone Sodium/Sodium Chloride (Rocephin/Sodium Chloride) 55 ml @ 110 mls/hr DAILY@2100 IVPB 12/29/16 21:00 01/05/17 20:59 12/29/16 20:50 Finasteride (Proscar) 5 mg DAILY ORAL 12/29/16 09:00 01/28/17 08:59 12/30/16 08:56 Heparin Sodium (Porcine) (Heparin 5000 units/ml) 5,000 units EVERY 12 HOURS SUBQ 12/29/16 09:00 01/28/17 08:59 12/30/16 09:00 Lidocaine (Lidoderm 5% PATCH) 1 patch PRN PRN TDERMAL BACK PAIN 12/29/16 08:00 01/28/17 07:59 12/30/16 09:11 Tamsulosin HCl (Flomax) 0.4 mg Q12HR ORAL 12/29/16 09:00 01/28/17 08:59 12/30/16 08:56 CHEYENNE VARGAS DO Dec 30, 2016 18:59
[2016-12-30 20:00] VITALS: BP 136/79
[2016-12-30] MEDS: cefTRIAXone 1 GM in NS 55 ML IVPB SCH (21:00)
[2016-12-31] VITALS: BP 122/67
[2016-12-31] MEDS: DuoNeb 0.5-3(2.5)mg/3ml neb HHN SCH ×4 (01:00→19:00)
[2016-12-31 04:00] VITALS: BP 126/71
[2016-12-31 08:10] VITALS: BP 128/72
--- NOTE | 2016-12-31 08:29 | Pulmonology Progress Note ---
Assessment/Plan Assessment/Plan 1. Chronic obstructive pulmonary disease exacerbation. 2. Mild anemia. 3. Hypertension. 4. Status post coronary artery bypass surgery. 5. Probable benign prostatic hypertrophy. NO steroids nebs as rx abx transition to po oob check RA sat dc planning per primary Subjective Constitutional: Reports: no symptoms HEENT: Repors: no symptoms Respiratory: Reports: no symptoms Cardiovascular: Reports: no symptoms Psychiatric: Reports: no symptoms Endocrine: Reports: no symptoms Hematologic: Reports: no symptoms Allergies: Coded Allergies: No Known Allergies (Verified , 04/30/10) Subjective no events noted over night still confused no distress on RA no cp nv or bleeding positive uop Objective Last 24 Hour Vital Signs Date Time Temp Pulse Resp B/P Pulse Ox O2 Delivery O2 Flow Rate FiO2 12/31/16 08:10 96.6 89 17 128/72 100 Room Air 12/31/16 07:39 75 16 100 Room Air 12/31/16 07:31 21 12/31/16 07:30 72 18 95 Room Air 21 12/31/16 04:00 98.1 73 18 126/71 98 Room Air 12/31/16 01:00 Room Air 12/31/16 01:00 Room Air 12/31/16 00:00 97.5 80 18 122/67 98 Room Air 12/30/16 20:00 97.7 83 18 136/79 98 Room Air 12/30/16 19:29 Room Air 12/30/16 19:29 Room Air 12/30/16 16:00 98.1 75 18 127/69 99 Room Air 12/30/16 13:39 77 20 100 Room Air 12/30/16 13:30 83 18 95 Room Air 12/30/16 12:00 97.5 73 18 114/67 96 Room Air Intake and Output 12/30/16 12/31/16 19:00 07:00 Intake Total 1000 ml 480 ml Balance 1000 ml 480 ml Intake Oral 1000 ml 480 ml # Voids 2 2 # Bowel Movements 1 General Appearance: cachetic HEENT: atraumatic, anicteric Respiratory/Chest: lungs clear, normal breath sounds Cardiovascular: normal rate, regular rhythm Abdomen: soft, non tender, no organomegaly Skin: no rash Neurologic/Psychiatric: alert Lymphatic: no groin adenopathy Microbiology Date/Time Source Procedure Growth Status 12/28/16 22:00 Blood Blood Culture - Preliminary NO GROWTH AFTER 48 HOURS Resulted 12/28/16 19:45 Blood Blood Culture - Preliminary NO GROWTH AFTER 48 HOURS Resulted no new labs or cxr today Current Medications Medications (Trade) Dose Ordered Sig/Yulisa Route PRN Reason Start Time Stop Time Status Last Admin Dose Admin Acetaminophen (Tylenol) 650 mg Q4H PRN ORAL Mild Pain/Temp > 100.5 12/29/16 08:00 01/28/17 07:59 Albuterol/ Ipratropium (DuoNeb 0.5-3(2.5)mg/3ml) 3 ml Q6HRT HHN 12/29/16 14:30 01/03/17 14:29 12/31/16 07:28 Azithromycin (Zithromax) 250 mg DAILY ORAL 12/30/16 09:00 01/06/17 08:59 12/30/16 09:11 Ceftriaxone Sodium/Sodium Chloride (Rocephin/Sodium Chloride) 55 ml @ 110 mls/hr DAILY@2100 IVPB 12/29/16 21:00 01/05/17 20:59 12/29/16 20:50 Finasteride (Proscar) 5 mg DAILY ORAL 12/29/16 09:00 01/28/17 08:59 12/30/16 08:56 Heparin Sodium (Porcine) (Heparin 5000 units/ml) 5,000 units EVERY 12 HOURS SUBQ 12/29/16 09:00 01/28/17 08:59 12/30/16 09:00 Lidocaine (Lidoderm 5% PATCH) 1 patch PRN PRN TDERMAL BACK PAIN 12/29/16 08:00 01/28/17 07:59 12/30/16 09:11 Tamsulosin HCl (Flomax) 0.4 mg Q12HR ORAL 12/29/16 09:00 01/28/17 08:59 12/30/16 21:10 CHEYENNE VARGAS DO Dec 31, 2016 08:29
[2016-12-31] MEDS ORDERED: Tubing IV Secondary IV ONE (08:49)
[2016-12-31] MEDS: Heparin 5000 units/ml inj SUBQ SCH ×2 (09:00→20:55)
[2016-12-31] MEDS: Azithromycin 250mg tab ORAL SCH (09:02)
[2016-12-31] MEDS: Tamsulosin 0.4mg cap ORAL SCH ×2 (09:02→20:55)
--- NOTE | 2016-12-31 10:01 | General Progress Note ---
Assessment/Plan Problem List: (1) CAD (coronary artery disease) of artery bypass graft ICD Codes: I25.810 - Atherosclerosis of coronary artery bypass graft(s) without angina pectoris SNOMED: 01436175, 44598580, 399887261, 716526221, 719832701 (2) Osteoarthritis ICD Codes: M19.90 - Unspecified osteoarthritis, unspecified site SNOMED: 397185585 (3) Lumbar disc disease ICD Codes: M51.9 - Unspecified thoracic, thoracolumbar and lumbosacral intervertebral disc disorder SNOMED: 19043415, 280288071 (4) Gait abnormality ICD Codes: R26.9 - Unspecified abnormalities of gait and mobility SNOMED: 51728594 (5) COPD exacerbation ICD Codes: J44.1 - Chronic obstructive pulmonary disease with (acute) exacerbation SNOMED: 606474072, 000755800 (6) Episode of generalized weakness ICD Codes: R53.1 - Weakness SNOMED: 48793941 (7) Bronchitis ICD Codes: J40 - Bronchitis, not specified as acute or chronic SNOMED: 78927508 Assessment/Plan continue antibiotics, PT mobilization and safety eval, social service eval Subjective Constitutional: Reports: weakness HEENT: Reports: blurred vision Cardiovascular: Reports: no symptoms Respiratory: Reports: cough, shortness of breath Gastrointestinal/Abdominal: Reports: no symptoms Genitourinary: Reports: no symptoms Neurologic/Psychiatric: Reports: no symptoms Endocrine: Reports: no symptoms Allergies: Coded Allergies: No Known Allergies (Verified , 04/30/10) Subjective difficulty walking back pain Objective Last 24 Hour Vital Signs Date Time Temp Pulse Resp B/P Pulse Ox O2 Delivery O2 Flow Rate FiO2 12/31/16 08:10 96.6 89 17 128/72 100 Room Air 12/31/16 07:39 75 16 100 Room Air 12/31/16 07:31 21 12/31/16 07:30 72 18 95 Room Air 12/31/16 04:00 98.1 73 18 126/71 98 Room Air 12/31/16 01:00 Room Air 12/31/16 01:00 Room Air 12/31/16 00:00 97.5 80 18 122/67 98 Room Air 12/30/16 20:00 97.7 83 18 136/79 98 Room Air 12/30/16 19:29 Room Air 12/30/16 19:29 Room Air 12/30/16 16:00 98.1 75 18 127/69 99 Room Air 12/30/16 13:39 77 20 100 Room Air 12/30/16 13:30 83 18 95 Room Air 12/30/16 12:00 97.5 73 18 114/67 96 Room Air Intake and Output 12/30/16 12/31/16 19:00 07:00 Intake Total 1000 ml 480 ml Balance 1000 ml 480 ml Intake Oral 1000 ml 480 ml # Voids 2 2 # Bowel Movements 1 Height (Feet): 5 Height (Inches): 6.00 Weight (Pounds): 114 FINN RODRIGUEZ Dec 31, 2016 10:01
[2016-12-31 12:00] VITALS: BP 138/74
[2016-12-31 16:00] VITALS: BP 114/68
[2016-12-31] MEDS: cefTRIAXone 1 GM in NS 55 ML IVPB SCH (20:55)
[2017-01-01] VITALS: BP 110/61
[2017-01-01] MEDS: DuoNeb 0.5-3(2.5)mg/3ml neb HHN SCH ×4 (01:00→19:44)
[2017-01-01 04:00] VITALS: BP 136/77
[2017-01-01 07:52] VITALS: BP 98/62
[2017-01-01] MEDS: Azithromycin 250mg tab ORAL SCH (08:36)
[2017-01-01] MEDS: Heparin 5000 units/ml inj SUBQ SCH ×2 (08:38→20:51)
[2017-01-01] MEDS: Tamsulosin 0.4mg cap ORAL SCH ×3 (08:46→20:50)
[2017-01-01 11:47] VITALS: BP 135/85
--- NOTE | 2017-01-01 13:37 | Pulmonology Progress Note ---
Assessment/Plan Assessment/Plan 1. Chronic obstructive pulmonary disease exacerbation. 2. Mild anemia. 3. Hypertension. 4. Status post coronary artery bypass surgery. 5. Probable benign prostatic hypertrophy. anxious to go home pulm status stable agree w dc planning Subjective Respiratory: Denies: productive cough, shortness of breath Allergies: Coded Allergies: No Known Allergies (Verified , 04/30/10) Objective Last 24 Hour Vital Signs Date Time Temp Pulse Resp B/P Pulse Ox O2 Delivery O2 Flow Rate FiO2 01/01/17 13:15 85 16 100 Room Air 21 01/01/17 13:04 21 01/01/17 13:04 80 20 95 Room Air 21 01/01/17 11:47 97.5 87 20 135/85 92 Room Air 01/01/17 08:01 84 22 98 Room Air 01/01/17 08:01 90 20 100 Room Air 21 01/01/17 08:01 21 01/01/17 07:52 97.9 91 22 98/62 97 Room Air 01/01/17 04:00 96.3 74 18 136/77 Room Air 01/01/17 01:00 Room Air 01/01/17 01:00 Room Air 01/01/17 00:00 97.7 86 18 110/61 97 Room Air 12/31/16 19:19 21 12/31/16 19:19 73 16 99 Room Air 12/31/16 19:19 Room Air 12/31/16 16:00 97.9 84 17 114/68 95 Room Air Intake and Output 12/31/16 01/01/17 19:00 07:00 Intake Total 480 ml 240 ml Balance 480 ml 240 ml Intake Oral 480 ml 240 ml # Voids 2 3 HEENT: atraumatic Respiratory/Chest: lungs clear Cardiovascular: normal rate Current Medications Medications (Trade) Dose Ordered Sig/Yulisa Route PRN Reason Start Time Stop Time Status Last Admin Dose Admin Acetaminophen (Tylenol) 650 mg Q4H PRN ORAL Mild Pain/Temp > 100.5 12/29/16 08:00 01/28/17 07:59 Albuterol/ Ipratropium (DuoNeb 0.5-3(2.5)mg/3ml) 3 ml Q6HRT HHN 12/29/16 14:30 01/03/17 14:29 01/01/17 13:04 Azithromycin (Zithromax) 250 mg DAILY ORAL 12/30/16 09:00 01/06/17 08:59 01/01/17 08:36 Ceftriaxone Sodium/Sodium Chloride (Rocephin/Sodium Chloride) 55 ml @ 110 mls/hr DAILY@2100 IVPB 12/29/16 21:00 01/05/17 20:59 12/29/16 20:50 Finasteride (Proscar) 5 mg DAILY ORAL 12/29/16 09:00 01/28/17 08:59 01/01/17 08:36 Heparin Sodium (Porcine) (Heparin 5000 units/ml) 5,000 units EVERY 12 HOURS SUBQ 12/29/16 09:00 01/28/17 08:59 01/01/17 08:38 Lidocaine (Lidoderm 5% PATCH) 1 patch PRN PRN TDERMAL BACK PAIN 12/29/16 08:00 01/28/17 07:59 12/31/16 10:40 Tamsulosin HCl (Flomax) 0.4 mg Q12HR ORAL 12/29/16 09:00 01/28/17 08:59 12/31/16 09:02 UTE MUNOZ Jan 01, 2017 13:37
[2017-01-01 16:00] VITALS: BP 120/62
[2017-01-01 20:02] VITALS: BP 112/61
[2017-01-02] VITALS: BP 130/68
[2017-01-02] MEDS: DuoNeb 0.5-3(2.5)mg/3ml neb HHN SCH ×4 (01:06→19:25)
--- NOTE | 2017-01-02 02:28 | Discharge Summary ---
DATE OF ADMISSION: 12/28/2016 DATE OF DISCHARGE: 01/03/2017 PERTINENT HISTORY: The patient was admitted with cough and weakness. The emergency room doctor thought he had pneumonia. He has a history of generalized weakness, gait disorder, prior hospitalization, falls, back pain, likely sciatica, osteoarthritis, and COPD. PERTINENT PHYSICAL FINDINGS: GENERAL: The patient is alert. HEAD, EYES, EARS, NOSE, AND THROAT: Hearing is diminished. Throat is clear. LUNGS: No rales or rhonchi. He has dry cough. HEART: Regular rate and rhythm. No murmur. ABDOMEN: Soft without organomegaly. EXTREMITIES: No edema. MUSCULOSKELETAL: He walks with a slight limp with a walker. COURSE IN THE HOSPITAL: The patient had leukocytosis and cough and bronchitis, and started on empiric antibiotics. Chest x-ray showed no definite infiltrate. His cough gradually improved. He required physical therapy as he has unsteady gait. DISCHARGE PHYSICAL EXAMINATION: VITAL SIGNS: On the day of discharge, his vital signs were stable. LUNGS: Clear. HEART: Regular rhythm. ABDOMEN: Soft. EXTREMITIES: No edema. He is able to walk with a walker. He was discharged home in stable condition. FINAL DIAGNOSES: 1. Acute bronchitis. 2. Chronic obstructive pulmonary disease. 3. Gait disorder. 4. Lumbar disk disease. 5. Osteoarthritis. 6. Benign prostatic hyperplasia. 7. cognitive deficits DISCHARGE DISPOSITION: He is discharged to an ecf on a regular diet. DISCHARGE MEDICATIONS: Per the discharge medication list. FOLLOWUP: Follow up by Dr Morales Of note is that the patient was seen by case management and social service prior to admission in view of his recurrent admissions and social issues. Oneal Morales M.D. DR: SACHIN JOB#: [id number] CC: LILIA
[2017-01-02 04:00] VITALS: BP 123/65
[2017-01-02 07:59] VITALS: BP 111/56
[2017-01-02] MEDS: Tamsulosin 0.4mg cap ORAL SCH ×2 (08:36→20:38)
[2017-01-02] MEDS: Azithromycin 250mg tab ORAL SCH (08:36)
[2017-01-02] MEDS: Heparin 5000 units/ml inj SUBQ SCH ×2 (08:38→20:37)
[2017-01-02 12:24] VITALS: BP 114/65
--- NOTE | 2017-01-02 13:26 | Pulmonology Progress Note ---
Assessment/Plan Assessment/Plan 1. Chronic obstructive pulmonary disease exacerbation. 2. Mild anemia. 3. Hypertension. 4. Status post coronary artery bypass surgery. 5. Probable benign prostatic hypertrophy. anote dc plan pulm status stable will sign off Subjective Respiratory: Denies: productive cough, shortness of breath Allergies: Coded Allergies: No Known Allergies (Verified , 04/30/10) Objective Last 24 Hour Vital Signs Date Time Temp Pulse Resp B/P Pulse Ox O2 Delivery O2 Flow Rate FiO2 01/02/17 12:38 70 18 97 Room Air 21 01/02/17 12:38 70 18 97 Room Air 21 01/02/17 12:24 98.2 84 15 114/65 98 Room Air 01/02/17 07:59 97.7 82 16 111/56 98 Room Air 01/02/17 07:27 70 18 97 Room Air 21 01/02/17 07:27 70 18 97 Room Air 21 01/02/17 04:00 98.2 75 20 123/65 95 Room Air 01/02/17 01:09 73 16 99 Room Air 01/02/17 01:08 21 01/02/17 01:07 83 18 97 Room Air 21 01/02/17 00:00 98.1 73 18 130/68 96 Room Air 01/01/17 20:02 98.6 88 21 112/61 98 Room Air 01/01/17 19:45 86 16 100 Room Air 21 01/01/17 19:45 85 18 97 Room Air 21 01/01/17 19:45 21 01/01/17 16:00 97.5 78 21 120/62 97 Room Air Intake and Output 01/01/17 01/02/17 19:00 07:00 Intake Total 960 ml 240 ml Balance 960 ml 240 ml Intake Oral 960 ml 240 ml # Voids 1 3 General Appearance: no acute distress Respiratory/Chest: crackles/rales Cardiovascular: normal rate Current Medications Medications (Trade) Dose Ordered Sig/Yulisa Route PRN Reason Start Time Stop Time Status Last Admin Dose Admin Acetaminophen (Tylenol) 650 mg Q4H PRN ORAL Mild Pain/Temp > 100.5 12/29/16 08:00 01/28/17 07:59 Albuterol/ Ipratropium (DuoNeb 0.5-3(2.5)mg/3ml) 3 ml Q6HRT HHN 12/29/16 14:30 01/03/17 14:29 01/02/17 01:06 Azithromycin (Zithromax) 250 mg DAILY ORAL 12/30/16 09:00 01/06/17 08:59 01/02/17 08:36 Finasteride (Proscar) 5 mg DAILY ORAL 12/29/16 09:00 01/28/17 08:59 01/02/17 08:36 Heparin Sodium (Porcine) (Heparin 5000 units/ml) 5,000 units EVERY 12 HOURS SUBQ 12/29/16 09:00 01/28/17 08:59 01/02/17 08:38 Lidocaine (Lidoderm 5% PATCH) 1 patch PRN PRN TDERMAL BACK PAIN 12/29/16 08:00 01/28/17 07:59 12/31/16 10:40 Tamsulosin HCl (Flomax) 0.4 mg Q12HR ORAL 12/29/16 09:00 01/28/17 08:59 01/02/17 08:36 UTE MUNOZ Jan 02, 2017 13:26
[2017-01-02 16:02] VITALS: BP 112/59
[2017-01-02 20:00] VITALS: BP_SYST 129; BP_SYST 140; BP_DIAS 70; BP_DIAS 72
--- NOTE | 2017-01-02 22:24 | General Progress Note ---
Assessment/Plan Problem List: (1) CAD (coronary artery disease) of artery bypass graft ICD Codes: I25.810 - Atherosclerosis of coronary artery bypass graft(s) without angina pectoris SNOMED: 30550315, 85592077, 511228508, 380765585, 473367267 (2) Osteoarthritis ICD Codes: M19.90 - Unspecified osteoarthritis, unspecified site SNOMED: 717515764 (3) Lumbar disc disease ICD Codes: M51.9 - Unspecified thoracic, thoracolumbar and lumbosacral intervertebral disc disorder SNOMED: 79851470, 006068895 (4) Gait abnormality ICD Codes: R26.9 - Unspecified abnormalities of gait and mobility SNOMED: 47213174 (5) COPD exacerbation ICD Codes: J44.1 - Chronic obstructive pulmonary disease with (acute) exacerbation SNOMED: 111222506, 094792066 (6) Episode of generalized weakness ICD Codes: R53.1 - Weakness SNOMED: 27444716 (7) Bronchitis ICD Codes: J40 - Bronchitis, not specified as acute or chronic SNOMED: 26661796 Assessment/Plan , PT mobilization and safety eval, social service eval, cognitiveve deficit and no safe dc plan yet, plan for ecf Subjective Constitutional: Reports: weakness HEENT: Reports: no symptoms Cardiovascular: Reports: no symptoms Respiratory: Reports: cough, no symptoms Gastrointestinal/Abdominal: Reports: no symptoms Genitourinary: Reports: no symptoms Endocrine: Reports: no symptoms Hematologic/Lymphatic: Reports: no symptoms Allergies: Coded Allergies: No Known Allergies (Verified , 04/30/10) Subjective difficulty walking back pain less sob Objective Last 24 Hour Vital Signs Date Time Temp Pulse Resp B/P Pulse Ox O2 Delivery O2 Flow Rate FiO2 01/02/17 20:00 97.9 83 24 129/70 98 Room Air 01/02/17 19:25 84 18 97 Room Air 01/02/17 19:25 88 18 97 Room Air 01/02/17 19:25 21 01/02/17 16:02 97.7 86 14 112/59 98 Room Air 01/02/17 12:38 70 18 97 Room Air 21 01/02/17 12:38 70 18 97 Room Air 01/02/17 12:24 98.2 84 15 114/65 98 Room Air 01/02/17 07:59 97.7 82 16 111/56 98 Room Air 01/02/17 07:27 70 18 97 Room Air 21 01/02/17 07:27 70 18 97 Room Air 21 01/02/17 04:00 98.2 75 20 123/65 95 Room Air 01/02/17 01:09 73 16 99 Room Air 21 01/02/17 01:08 21 01/02/17 01:07 83 18 97 Room Air 21 01/02/17 00:00 98.1 73 18 130/68 96 Room Air Intake and Output 01/01/17 01/02/17 19:00 07:00 Intake Total 960 ml 240 ml Balance 960 ml 240 ml Intake Oral 960 ml 240 ml # Voids 1 3 Height (Feet): 5 Height (Inches): 6.00 Weight (Pounds): 114 General Appearance: no apparent distress, alert EENT: normal ENT inspection Neck: normal alignment, supple Cardiovascular: normal rate, regular rhythm Respiratory/Chest: lungs clear Extremities: no calf tenderness Edema: no edema noted Arm (L), no edema noted Arm (R), no edema noted Leg (L), no edema noted Leg (R), no edema noted Pedal (L), no edema noted Pedal (R), no edema noted 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
[2017-01-03] MEDS: DuoNeb 0.5-3(2.5)mg/3ml neb HHN SCH ×3 (00:03→12:41)
--- NOTE | 2017-01-03 01:38 | Consultation ---
DATE OF CONSULTATION: HISTORY OF PRESENT ILLNESS: The patient is an 89-year-old male with a history of cognitive impairment, who has been admitted to the hospital for pneumonia and weakness. During the evaluation, the patient was uncooperative. He stated, "do you think I am crazy." It appeared that he had difficulty with his balance and he had to use his walker. He has a sitter. The patient in the middle of the evaluation dialed a number and started speaking Upper Sor[place] and when I spoke to him in regards to his placement and not feeling well he became severely angry and started speaking in Upper Sorbian. The patient was unable to understand, communicate, and appreciate process. Information was given to him in regards to his medical condition for placement. He became severely angry and agitated and asked me to leave the room. PAST PSYCHIATRIC HISTORY: Unknown. PAST MEDICAL HISTORY: Significant for coronary artery bypass and eye surgery. ALLERGIES: No known drug allergies. SUBSTANCE ABUSE HISTORY: No history of illicit drug use or alcohol. He used to be a smoker. SOCIAL HISTORY: The patient is living alone. 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 MENTAL STATUS EXAMINATION: The patient is alert and oriented to time, place, person, and situation. His mood is angry. Affect is constricted. Congruent mood. Thought process is concrete. Thought content, positive for paranoid ideation. Insight and judgment is impaired. ASSESSMENT: AXIS I Dementia. AXIS II Deferred. AXIS III As above. AXIS IV Moderate. AXIS V Global assessment of functioning is 20. PLAN: The patient lacks capacity to make decisions in regards to his placement . The patient would benefit from low dose of antidepressants. We will start him on fluoxetine 20 mg in the morning. Provide the patient with supportive therapy and reality orientation. Ridge Hollis M.D. DR: SUKHJINDER JOB#: [id number] CC:
[2017-01-03 04:00] VITALS: BP 132/62
[2017-01-03 07:32] VITALS: BP 106/65
[2017-01-03] MEDS: Heparin 5000 units/ml inj SUBQ SCH (09:00)
[2017-01-03] MEDS: Azithromycin 250mg tab ORAL SCH (09:39)
[2017-01-03] MEDS: Tamsulosin 0.4mg cap ORAL SCH (09:40)
[2017-01-03 11:26] VITALS: BP 116/63
--- NOTE | 2017-01-03 15:38 | General Progress Note ---
Assessment/Plan Problem List: (1) CAD (coronary artery disease) of artery bypass graft ICD Codes: I25.810 - Atherosclerosis of coronary artery bypass graft(s) without angina pectoris SNOMED: 50857877, 38699834, 359697210, 597062835, 144409575 (2) Osteoarthritis ICD Codes: M19.90 - Unspecified osteoarthritis, unspecified site SNOMED: 762661694 (3) Lumbar disc disease ICD Codes: M51.9 - Unspecified thoracic, thoracolumbar and lumbosacral intervertebral disc disorder SNOMED: 75241901, 792666022 (4) Gait abnormality ICD Codes: R26.9 - Unspecified abnormalities of gait and mobility SNOMED: 53959293 (5) COPD exacerbation ICD Codes: J44.1 - Chronic obstructive pulmonary disease with (acute) exacerbation SNOMED: 514602858, 275313242 (6) Episode of generalized weakness ICD Codes: R53.1 - Weakness SNOMED: 82990422 (7) Bronchitis ICD Codes: J40 - Bronchitis, not specified as acute or chronic SNOMED: 46975266 Assessment/Plan , PT mobilization and safety eval, social service eval, cognitiveve deficit and no safe dc plan yet, plan for ecf for 01/03 Subjective Constitutional: Reports: weakness HEENT: Reports: blurred vision Cardiovascular: Reports: no symptoms Respiratory: Reports: cough Gastrointestinal/Abdominal: Reports: no symptoms Genitourinary: Reports: no symptoms Neurologic/Psychiatric: Reports: no symptoms Endocrine: Reports: no symptoms Allergies: Coded Allergies: No Known Allergies (Verified , 04/30/10) Subjective difficulty walking back pain less sob Objective Last 24 Hour Vital Signs Date Time Temp Pulse Resp B/P Pulse Ox O2 Delivery O2 Flow Rate FiO2 01/03/17 12:41 Room Air 01/03/17 12:41 Room Air 01/03/17 11:26 97.7 73 19 116/63 96 Room Air 01/03/17 07:32 97.9 94 19 106/65 96 Room Air 01/03/17 07:20 Room Air 01/03/17 07:20 Room Air 01/03/17 04:00 97.9 85 20 132/62 98 Room Air 01/03/17 00:03 Room Air 01/03/17 00:03 Room Air 01/02/17 20:00 97.9 83 24 129/70 98 Room Air 01/02/17 19:25 84 18 97 Room Air 21 01/02/17 19:25 88 18 97 Room Air 21 01/02/17 19:25 21 01/02/17 16:02 97.7 86 14 112/59 98 Room Air Intake and Output 01/02/17 01/03/17 19:00 07:00 Intake Total 1250 ml 480 ml Balance 1250 ml 480 ml Intake Oral 1250 ml 480 ml # Voids 2 3 Height (Feet): 5 Height (Inches): 6.00 Weight (Pounds): 114 FINN RODRIGUEZ Jan 03, 2017 15:38
[2017-01-03 15:40] VITALS: BP 133/75
--- NOTE | 2017-01-03 19:58 | Progress Note ---
DATE: 01/03/2017 SUBJECTIVE: The patient is still irritable. His behavior is labile. He has anxiety and easily agitated, although the patient is alert and oriented to time, self, place, and situation he is in; however, he is unable to understand the importance of being in a place and not understanding the inability to care for himself. The patient is having also impairment of concentration, memory, and attention. MENTAL STATUS EXAMINATION: The patient is alert and oriented x3. Mood is irritable and anxious. Affect is constricted, congruent with mood. Thought process is concrete. Thought content, no suicidal or homicidal ideation. Insight and judgment is impaired. Cognition is impaired. ASSESSMENT: The patient lacks capacity to make decisions in regard to his placement. He may not live on his own. PLAN: He should be discharged to a nursing facility. The case was discussed with the social workers. Ridge Hollis M.D. DR: Mariaa JOB#: [id number] CC:
== END 2017-01-03 19:30 | DRG 192 ==
LOC: EDBD 21:24 → EMR 22:00 → 4W 23:13 → EDBEDREQ 12-29 00:56 → 4W 12-29 03:16 → 3E 12-29 09:21 → 4E 12-31 19:56
DX: J44.1 Chronic obstructive pulmonary disease with (acute) exacerbation (principal); F03.90 Unspecified dementia, unspecified severity, without behavioral disturbance, psychotic disturbance, mood disturbance, and anxiety; D64.9 Anemia, unspecified; J20.9 Acute bronchitis, unspecified; J44.0 Chronic obstructive pulmonary disease with (acute) lower respiratory infection; I10 Essential (primary) hypertension; Z95.1 Presence of aortocoronary bypass graft; N40.0 Benign prostatic hyperplasia without lower urinary tract symptoms; R26.9 Unspecified abnormalities of gait and mobility; M51.36 Other intervertebral disc degeneration, lumbar region; M19.90 Unspecified osteoarthritis, unspecified site; Z87.891 Personal history of nicotine dependence; I25.10 Atherosclerotic heart disease of native coronary artery without angina pectoris; Z91.81 History of falling; Z60.2 Problems related to living alone; R53.1 Weakness; R41.89 Other symptoms and signs involving cognitive functions and awareness
CPT/HCPCS: 36415; 71010; 80053; 81003; 82550; 82553; 83605; 84484; 85025; 87040; 94640; 94664; J7620

== ENCOUNTER 2017-01-28 22:21 | Inpatient (IN) | payer MEDICARE, OTHER ==
[~2017-01-28] VITALS: Ht 167.6 cm; Wt 59.0 kg
[~2017-01-28 22:21] MED LIST changes: +UNOBMED
[2017-01-28 22:25] VITALS: BP 151/78
[2017-01-28] MEDS ORDERED: Ketorolac 30mg Inj IV ONE (22:30)
[2017-01-28 23:04] LABS: BASOPHILS % (AUTO) 0.5 % (0.0-2.0); EOSINOPHILS % (AUTO) 0.5 % (0.0-3.0); LYMPHOCYTES % (AUTO) 10.5 % (20.0-45.0); MEAN CORPUSCULAR HEMOGLOBIN 35.2 PG (27.0-31.0); MEAN CORPUSCULAR HGB CONC 35.5 G/DL (32.0-36.0); MEAN CORPUSCULAR VOLUME 99 FL (80-99); MEAN PLATELET VOLUME 5.6 FL (6.5-10.1); MONOCYTES % (AUTO) 10.4 % (1.0-10.0); NEUTROPHILS % (AUTO) 78.1 % (45.0-75.0); PLATELET COUNT 183 K/UL (150-450); RED BLOOD COUNT 3.67 M/UL (4.70-6.10); RED CELL DISTRIBUTION WIDTH 11.8 % (11.6-14.8)
[2017-01-28 23:20] LABS: INR 1.1 (0.9-1.1); PROTHROMBIN TIME 10.8 SEC (9.30-11.50); TROPONIN I < 0.30 ng/mL (<=0.30)
[2017-01-28 23:24] LABS: ALANINE AMINOTRANSFERASE 15 U/L (3-41); ALBUMIN/GLOBULIN RATIO 1.2 (1.0-2.7); ANION GAP 8 (5-15); ASPARTATE AMINO TRANSFERASE 27 U/L (5-40); CALCIUM 9.2 mg/dL (8.6-10.2); CARBON DIOXIDE 31 mEQ/L (20-30); CHLORIDE 104 mEQ/L (98-107); CREATININE 0.8 mg/dL (0.7-1.2); HEMOLYSIS 3; LIPASE 25 U/L (< 60); POTASSIUM 4.2 mEQ/L (3.4-4.9); SODIUM 143 mEQ/L (135-145); TOTAL PROTEIN 6.2 g/dL (6.6-8.7)
[2017-01-28 23:32] LABS: APPEARANCE,URINE CLOUDY; KETONES,URINE NEGATIVE (NEGATIVE); LEUKOCYTE ESTERASE ,URINE 2+ (NEGATIVE); NITRITE,URINE NEGATIVE (NEGATIVE); PH,URINE 5 (4.5-8.0); PROTEIN,URINE 2+ (NEGATIVE); UROBILINOGEN,URINE NORMAL MG/DL (0.0-1.0)
[2017-01-28 23:45] VITALS: BP 143/65
[2017-01-28 23:53] LABS: BACTERIA,URINE FEW /HPF; RBC,URINE TNTC /HPF (0 - 0); SQUAMOUS EPITHELIAL CELL,UR FEW /LPF (NONE/OCC)
[2017-01-29] VITALS (7 sets, daily range): BP systolic 114–137; BP diastolic 58–77
--- NOTE | 2017-01-29 | Emergency Room Report ---
History of Present Illness General Chief Complaint: Back Pain-No Injury Source: Patient, EMS Present Illness HPI Patient presents with one week of back pain. He denies any trauma. He states it's more on the left-hand side. He states it doesn't radiate. He rates a 6/ 10 and has difficulty characterizing it. He will not answer whether he takes any medication. Denies any nausea, vomiting, diarrhea or dysuria. The patient denies fevers and chills. He denies shortness of breath. Patient recently admitted [facility]: FINAL DIAGNOSES: 1. Acute bronchitis. 2. Chronic obstructive pulmonary disease. 3. Gait disorder. 4. Lumbar disk disease. 5. Osteoarthritis. 6. Benign prostatic hyperplasia. 7. cognitive deficits Allergies: Coded Allergies: No Known Allergies (Verified , 04/30/10) Patient History Past Medical History: see triage record, old chart reviewed Social History Narrative at home Reviewed Nursing Documentation: PMH: Agreed, PSxH: Agreed Nursing Documentation-PMH Hx Hypertension: Yes Hx Cancer: No Hx Gastrointestinal Problems: No Hx Neurological Problems: No Review of Systems All Other Systems: negative except mentioned in HPI - poor historian Physical Exam Vital Signs Date Time Temp Pulse Resp B/P Pulse Ox O2 Delivery O2 Flow Rate FiO2 01/28/17 22:20 96.1 76 18 146/80 98 Room Air Sp02 EP Interpretation: reviewed, normal General Appearance: well appearing, no apparent distress, alert - eyes closed, other - frail Head: normocephalic Eyes: bilateral eye PERRL, bilateral eye normal inspection ENT: moist mucus membranes Neck: supple Respiratory: lungs clear, normal breath sounds Cardiovascular #1: regular rate, rhythm Cardiovascular #2: 2+ radial (R) Gastrointestinal: normal inspection, normal bowel sounds, non tender, no mass, non-distended Genitourinary: CVA tenderness (L) Musculoskeletal: other - lumbar tenderness, more R paraspinous area Neurologic: alert, motor strength/tone normal, DTRs symmetric, sensory intact, oriented - X2 - hard of hearning Psychiatric: depressed affect Skin: warm/dry, other - sallo Medical Decision Making Diagnostic Impression: Primary Impression: Pyelonephritis Additional Impressions: Lumbar disc disease Osteoarthritis Qualified Codes: M47.27 - Other spondylosis with radiculopathy, lumbosacral region ER Course The patient presents with back pain for one week without trauma. Differential includes pyelonephritis, back strain, occult vertebral body fracture, kidney stone amongst others. His main comorbidities is hypertension. He's in no distress at this time. Evaluation will be with labs, x-rays and urinalysis. The patient will be treated with Toradol. Complex patient needing extensive evaluation. Labs significant for mildly elevated white count and pyuria with some hematuria. Xrays with L1 vertebral body fx and extensive DJD. Clinically the patient has pyelonephritis. Antibiotics will be started. He was be admitted to the hospital. Admitted to Dr. Morales. Laboratory Tests Test 01/28/17 22:45 01/28/17 23:00 White Blood Count 10.0 K/UL (4.8-10.8) Red Blood Count 3.67 M/UL (4.70-6.10) L Hemoglobin 12.9 G/DL (14.2-18.0) L Hematocrit 36.4 % (42.0-52.0) L Mean Corpuscular Volume 99 FL (80-99) Mean Corpuscular Hemoglobin 35.2 PG (27.0-31.0) H Mean Corpuscular Hemoglobin Concent 35.5 G/DL (32.0-36.0) Red Cell Distribution Width 11.8 % (11.6-14.8) Platelet Count 183 K/UL (150-450) Mean Platelet Volume 5.6 FL (6.5-10.1) L Neutrophils (%) (Auto) 78.1 % (45.0-75.0) H Lymphocytes (%) (Auto) 10.5 % (20.0-45.0) L Monocytes (%) (Auto) 10.4 % (1.0-10.0) H Eosinophils (%) (Auto) 0.5 % (0.0-3.0) Basophils (%) (Auto) 0.5 % (0.0-2.0) Erythrocyte Sedimentation Rate Pending Prothrombin Time 10.8 SEC (9.30-11.50) Prothrombin Time INR 1.1 (0.9-1.1) PTT 30 SEC (23-33) Sodium Level 143 mEQ/L (135-145) Potassium Level 4.2 mEQ/L (3.4-4.9) Chloride Level 104 mEQ/L (98-107) Carbon Dioxide Level 31 mEQ/L (20-30) H Anion Gap 8 (5-15) Blood Urea Nitrogen 27 mg/dL (7-23) H Creatinine 0.8 mg/dL (0.7-1.2) Estimate Glomerular Filtration Rate mL/min (>60) Glucose Level 108 mg/dL (74-106) H Calcium Level 9.2 mg/dL (8.6-10.2) Total Bilirubin 0.5 mg/dL (0.0-1.2) Aspartate Amino Transferase (AST) 27 U/L (5-40) Alanine Aminotransferase (ALT) 15 U/L (3-41) Alkaline Phosphatase 49 U/L (40-129) Total Creatine Kinase 83 U/L (38-174) Troponin I < 0.30 ng/mL (<=0.30) Total Protein 6.2 g/dL (6.6-8.7) L Albumin 3.5 g/dL (3.5-5.2) Globulin 2.7 g/dL Albumin/Globulin Ratio 1.2 (1.0-2.7) Lipase 25 U/L (< 60) Urine Color [place] Urine Appearance Cloudy Urine pH 5 (4.5-8.0) Urine Specific [place] 1.020 (1.005-1.035) Urine Protein 2+ (NEGATIVE) H Urine Glucose (UA) Negative (NEGATIVE) Urine Ketones Negative (NEGATIVE) Urine Occult Blood 5+ (NEGATIVE) H Urine Nitrite Negative (NEGATIVE) Urine Bilirubin Negative (NEGATIVE) Urine Urobilinogen Normal MG/DL (0.0-1.0) Urine Leukocyte Esterase 2+ (NEGATIVE) H Urine RBC Tntc /HPF (0 - 0) H Urine WBC 5-10 /HPF (0 - 0) H Urine Squamous Epithelial Cells Few /LPF (NONE/OCC) Urine Bacteria Few /HPF (NONE) EKG Diagnostic Results Rate: normal Rhythm: NSR ST Segments: no acute changes Rhythm Strip Diag. Results EP Interpretation: yes Rhythm: NSR, no PVC's, no ectopy Other X-Ray Diagnostic Results Other X-Ray Diagnostic Results #1: X-Ray Ordered: abd Findings: other - back DJD, no SBO, no renal Ca Number of Views: 1 Other X-Ray Diagnostic Results #2: X-Ray Ordered: l/s spine EP Interpretation: Yes Findings: other - L1 fx, DJD, scoleosis, osteoporosis Number of Views: 3 Last Vital Signs Date Time Temp Pulse Resp B/P Pulse Ox O2 Delivery O2 Flow Rate FiO2 01/29/17 07:47 98.3 116 23 116/66 98 Room Air Status: improved Disposition: ADMITTED INPATIENT Condition: Serious Referrals: NOT CHOSEN IPA/,REFERRING (PCP) José Miguel Hassan M.D. January 29, 2017 00:00
[2017-01-29] MEDS ORDERED: Zosyn 3.375gm inj ONE (00:09)
[2017-01-29] MEDS ORDERED: Piperacillin/Tazobactam 3.375 GM in NS 110 ML IVPB ONE (00:15)
[2017-01-29] MEDS ORDERED: NKM (00:24)
[2017-01-29 01:12] LABS: ERYTHROCYTE SEDIMENTATION RATE 20 MM/HR (0-30)
[2017-01-29] MEDS ORDERED: Acetaminophen 650 MG SUPP RECTAL PRN (01:15)
[2017-01-29] MEDS: Tamsulosin 0.4mg cap ORAL SCH ×2 (08:38→17:38)
--- NOTE | 2017-01-29 11:08 | Diagnostic Imaging Report ---
Indications: Abdominal pain. Technique: AP view of the abdomen Findings: Comparison: None. Bowel gas pattern is unremarkable. No abnormal calcific or soft tissue densities are demonstrated. Multilevel disc space narrowing with marginal osteophyte formation, vacuum phenomenon throughout lumbar spine with mild scoliosis. Suggestion of mild superior endplate compression fracture T12, inferior endplate compression fracture L2 vertebral arteries. No associated intrapedicle distance widening. Clustered calcifications in the midline lower pelvis. Sternal wire, cardiomediastinal surgical clips. IMPRESSION: No evidence of acute abdominopelvic disease Degenerative spondylosis and scoliosis Questionable thoracolumbar vertebral body compression fractures, acuity indeterminate if real Pelvic calcifications likely prosthetic in nature Previous open heart surgery .
--- NOTE | 2017-01-29 11:51 | Diagnostic Imaging Report ---
Indications: Back pain Technique: 3 views lumbar spine Findings: Comparison: None The T12 vertebral body demonstrates moderate compression fracture superior endplate with height loss of up to 30%. There is suggestion of a mild asymmetric compression fracture of the inferior endplate versus developmental asymmetry of the of the L2 vertebral body. Neither demonstrates interpediculate distance widening or underlying lytic destructive process. Mild S-shaped scoliosis is present. Vertebral alignment is intact. The lumbar and lower thoracic intervertebral disc spaces are all varying degrees narrowed with marginal osteophyte formation, vacuum phenomenon, discogenic sclerosis. Suggestion of lumbar facet joint mild sclerosis. IMPRESSION: T12 vertebral body compression fracture, acuity indeterminate L2 vertebral body compression fracture versus developmental asymmetry, acuity indeterminate if former. Lower thoracic and lumbar degenerative disc disease Suggestion of multilevel lumbar facet arthropathy Consider MRI for further evaluation as clinically indicated
[2017-01-29] MEDS: Aspirin EC 81mg tab ORAL SCH (15:10)
--- NOTE | 2017-01-29 18:59 | Cardiology Report ---
APPROVED REPORT EKG Measurement Heart [id number] CO [id number] Normal sinus rhythm Possible Left atrial enlargement Borderline ECG
[2017-01-29] MEDS: Heparin 5000 units/ml inj SUBQ SCH (21:00)
--- NOTE | 2017-01-29 21:29 | History and Physical Report ---
DATE OF ADMISSION: 01/29/2017 CHIEF COMPLAINT AND REASON FOR HOSPITALIZATION: The patient is admitted with back pain, possible urinary tract infection or hematuria. HISTORY OF PRESENT ILLNESS: The patient is an 89-year-old male, who has been hospitalized here recently. He presents with low back pain more on the left than the right and now was told that he might have pyelonephritis from the emergency room physician. He has had moderate pain in the low back and has had prior evaluation and discogenic disease and a history of lumbar compression fractures. The patient also has COPD and benign prostatic hypertrophy, history of hypertension, history of hearing impairment, and history of coronary bypass surgery. He was hospitalized here in the past and went to [facility] where he was recently discharged back to his own residence. However, the Adult Protective Services has been called on him in the past because of recurrent falls and concern that he might not be able to take care of himself appropriately. ALLERGIES: None known. MEDICATIONS: He could not give a good history of medications. In the past, he was on finasteride 5 mg daily, Flomax 0.4 mg b.i.d, and Tylenol p.r.n. HABITS: He smoked for many years, but quit many years ago. No alcohol or drugs. 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 He lives alone, but apparently he has a lady friend and neighbor, who he sometimes calls his , but is not truly related. SURGERIES: Coronary artery bypass surgery and eye surgery. SYSTEM REVIEW: HEAD, EYES, EARS, NOSE, AND THROAT: He has some hearing impairment and poor vision. ENDOCRINE: No diabetes or thyroid disease. PULMONARY: History of COPD, history of intermittent chronic cough. No TB. CARDIAC: History of coronary artery bypass surgery. No chest pain at this time. No known CHF or arrhythmia. GASTROINTESTINAL: No ulcers or GI bleeding. GENITOURINARY: No dysuria or hematuria, although he said he could not void yesterday, it is not clear what this meant. NEUROLOGIC: No definite CVA or seizures. MUSCULOSKELETAL: History of low back pain. PHYSICAL EXAMINATION: GENERAL: The patient is an elderly patient, alert man, in no acute distress. He is hard of hearing. VITAL SIGNS: Temperature 97.7 degrees, pulse 64, respirations 20, and blood pressure 114/58. HEAD, EYES, EARS, NOSE AND THROAT: Ocular motions are intact in all directions. Oral mucosa is moist. NECK: No adenopathy or thyroid enlargement. LUNGS: Clear. HEART: Rhythm is regular. No murmur. ABDOMEN: Soft without organomegaly or masses. GENITOURINARY: Penis and testes are normal. RECTAL: Prostate is enlarged 2/4. No nodules. No fecal impaction. EXTREMITIES: No edema, cyanosis, or clubbing. BACK: He is complaining of some left-sided low back pain. He is able to move his legs. Gait is not tested at this time. PERTINENT LABORATORY DATA: UA shows 2+ leukocyte esterase, too numerous to count red cells, and 5 to 10 white cells per high-power field. Chemistries are normal with troponin less than 0.30. White count 10 and hemoglobin 12.9. Imaging shows T2 vertebral compression fracture and L2 vertebral body compression fracture versus developmental asymmetry and lower thoracic and lumbar degenerative disk disease. IMPRESSION: 1. Back pain likely related to compression fractures and discogenic disease. 2. Possible urinary tract infection. 3. Microscopic hematuria possibly related to [place] placed in the emergency room and positive for benign prostatic hypertrophy. PLAN: We will check urine culture and treat him with empiric antibiotics. Get physical therapy, gait training, and get aids social worker involved with discharge planning. Oneal Morales M.D. DR: RONAK JOB#: [id number] CC:
[2017-01-30] VITALS: BP 129/79
[2017-01-30 04:00] VITALS: BP 122/68
[2017-01-30 07:36] VITALS: BP 116/59
--- NOTE | 2017-01-30 09:09 | Diagnostic Imaging Report ---
Indication:Elevated Bun and Creatinine. Technique: Grayscale and duplex Doppler imaging of the kidneys performed. Comparison: None Findings: The size, contour, and echogenicity of both kidneys are within normal limits. Right kidney is 10 CM. Left kidney 11.4 CM in length. There is no hydronephrosis. The IVC and urinary bladder are unremarkable. There is enlargement of the prostate gland which measures 6.3 x 5.6 x 5.8 cm for total volume of 106 cc. Impression: Negative ultrasound the kidneys Prostate hypertrophy
[2017-01-30] MEDS: Tamsulosin 0.4mg cap ORAL SCH ×2 (09:54→17:30)
[2017-01-30] MEDS: Aspirin EC 81mg tab ORAL SCH (09:54)
[2017-01-30] MEDS: Heparin 5000 units/ml inj SUBQ SCH (09:57)
[2017-01-30 10:20] LABS: BASOPHILS % (AUTO) 0.3 % (0.0-2.0); LYMPHOCYTES % (AUTO) 22.5 % (20.0-45.0); MEAN CORPUSCULAR HEMOGLOBIN 32.7 PG (27.0-31.0); MEAN CORPUSCULAR HGB CONC 33.2 G/DL (32.0-36.0); MEAN CORPUSCULAR VOLUME 98 FL (80-99); MEAN PLATELET VOLUME 5.9 FL (6.5-10.1); MONOCYTES % (AUTO) 12.2 % (1.0-10.0); PLATELET COUNT 203 K/UL (150-450); RED BLOOD COUNT 3.87 M/UL (4.70-6.10)
[2017-01-30 13:00] VITALS: BP 125/71
[2017-01-30 15:25] VITALS: BP 120/58
[2017-01-30] MEDS ORDERED: Tubing IV Secondary IV ONE (18:51)
[2017-01-30] MEDS ORDERED: NS 550ML IV ONE (18:51)
--- NOTE | 2017-01-31 06:19 | Discharge Summary ---
DATE OF ADMISSION: 01/29/2017 DATE OF DISCHARGE: 01/30/2017 PERTINENT HISTORY: The patient is an 89-year-old man, who presents with back pain. He was seen by the emergency room doctor and felt not stable to be at home. He has had prior hospitalizations and prior difficulty walking and apparently he was unable to rise from the chair and walk at home. He also had an abnormal urinalysis and was started on empiric antibiotics for possible urinary tract infection. There is a history of coronary bypass surgery and BPH. PERTINENT PHYSICAL FINDINGS: LUNGS: Clear. HEART: Regular rhythm. ABDOMEN: Soft without organomegaly. EXTREMITIES: No edema. He had 2+ . He is able to walk a short distance with a walker during my exam. COURSE IN THE HOSPITAL: He was seen by physical therapy. He was given comfort measures. He was started on empiric antibiotics for urinary tract infection. Unfortunately, urine culture was lost, but he had no definite urinary tract infection based on his urinalysis. He did have abnormal imaging with lumbar compression fractures, which have been seen on a prior admission. It is felt that he could go home and get home health for physical therapy and on the day of discharge, his came and after discussion with the organ tuner electronic, arrangements were made to go home. He was able to walk a short distance in the hospital. FINAL DIAGNOSES: 1. Low back pain. 2. History of lumbar compression fractures, likely old. 3. Osteoarthritis. 4. Degenerative spondylitis and scoliosis. 5. Benign prostatic hypertrophy. DISCHARGE DISPOSITION: Home. We will try to get home health to see him, watch him closely in view of his comorbidities. MEDICATIONS: 1. Tylenol 1000 mg three times a day. 2. Tramadol 50 mg every 4 hours as needed. 3. Proscar 5 mg daily. 4. Tamsulosin 0.4 mg twice a day. Oneal Morales M.D. DR: SHAHIDA JOB#: [id number] CC:
== END 2017-01-30 18:52 | disposition home or self-care (01) | DRG 552 ==
LOC: EDBD 22:21 → EMR 22:25 → 4E 01-29 00:42 → EDBEDREQ 01-29 01:10
DX: M51.36 Other intervertebral disc degeneration, lumbar region (principal); J44.9 Chronic obstructive pulmonary disease, unspecified; Z95.1 Presence of aortocoronary bypass graft; M41.9 Scoliosis, unspecified; M46.86 Other specified inflammatory spondylopathies, lumbar region; M48.56XD Collapsed vertebra, not elsewhere classified, lumbar region, subsequent encounter for fracture with routine healing; Z87.891 Personal history of nicotine dependence; N40.0 Benign prostatic hyperplasia without lower urinary tract symptoms; M19.90 Unspecified osteoarthritis, unspecified site; I10 Essential (primary) hypertension; R26.2 Difficulty in walking, not elsewhere classified
CPT/HCPCS: 36415; 72020; 74000; 76775; 80053; 81003; 82550; 83690; 83880; 84484; 85025; 85610; 85651; 85730; 93005